=== PATIENT | female | born 1975 | race Caucasian/White ===

== ENCOUNTER 2021-01-21 03:19 | Emergency (ER) | payer MEDICAID ==
[2021-01-21 03:34] VITALS: BP 158/97; PULSE 101
[2021-01-21] MEDS ORDERED: LORazepam 0.5 MG Tab PO ONE (03:40)
--- NOTE | 2021-01-21 03:51 | EDM.PDOC ---
ED HPI GENERAL MEDICAL PROBLEM - General Chief Complaint: General Stated Complaint: anxiety Time Seen by Provider: 01/21/21 03:30 Source of Information: Reports: Patient History Limitations: Reports: No Limitations - History of Present Illness INITIAL COMMENTS - FREE TEXT/NARRATIVE: Naomi is a 45 year old female who presents to ER with increased anxiety. Was pulled over by the police department around [address] home from the bull riding event in [place]. States breathalyzer was done and she failed. has his own and was half of what the sonoscope operator recorded so wanting an alcohol blood test. Started having increased anxiety when the sonoscope operator put the handcuffs on her. Relates has anxiety attacks at times but is normally able to talk herself through them. Has not had a full blown one like this for 16 years. Feels pressure in her chest as a result. Onset: Today, Gradual Duration: Hour(s): Location: Reports: Generalized Quality: Reports: Ache Associated Symptoms: Reports: Chest Pain. Denies: Confusion, Cough, Nausea/Vomiting, Shortness of Breath - Related Data Allergies Allergy/AdvReac Type Severity Reaction Status Date / Time sulfamethoxazole Allergy Hives Verified 01/22/14 13:44 [From Bactrim] Home Meds: Home Meds . [No Known Home Meds] 01/08/15 [History] Past Medical History - Past Health History Medical/Surgical History: Denies Medical/Surgical History - Infectious Disease History Infectious Disease History: Reports: None Social & Family History - Family History Family Medical History: No Pertinent Family History Cardiac: Reports: None - Tobacco Use Tobacco Use Status *Q: Unknown Ever Used Tobacco ED ROS GENERAL - Review of Systems Review Of Systems: See Below Constitutional: Denies: Fever, Chills, Malaise, Weakness, Fatigue, Decreased Appetite HEENT: Reports: Rhinitis. Denies: Ear Pain, Sinus Problem, Throat Pain Respiratory: Denies: Shortness of Breath, Pleuritic Chest Pain Cardiovascular: Reports: Chest Pain. Denies: Edema, Lightheadedness Endocrine: Denies: Fatigue GI/Abdominal: Denies: Abdominal Pain, Nausea, Vomiting : Reports: No Symptoms Musculoskeletal: Reports: No Symptoms Skin: Reports: No Symptoms Neurological: Reports: No Symptoms Psychiatric: Reports: No Symptoms ED EXAM, GENERAL - Physical Exam Exam: See Below Exam Limited By: No Limitations General Appearance: Alert, WD/WN, Anxious Head: Normocephalic Neck: Normal Inspection, Supple, Non-Tender Respiratory/Chest: Lungs Clear, Normal Breath Sounds, Other (patient hyperventilating, given brown paper bag to breathe) Cardiovascular: Regular Rate, Rhythm Extremities: Normal Inspection, No Pedal Edema Neurological: Alert, Oriented Psychiatric: Anxious Course - Vital Signs Last Recorded V/S: Last Vital Signs Temp 98 F 01/21/21 03:28 Pulse 101 H 01/21/21 03:28 Resp 22 H 01/21/21 03:28 BP 158/97 H 01/21/21 03:28 Pulse Ox 98 01/21/21 03:28 - Orders/Labs/Meds Labs: Laboratory Tests 01/21/21 Range/Units 03:32 Ethyl Alcohol 187 H (0-3) mg/dL Meds: Medications Discontinued Medications Generic Name Dose Route Start Last Admin Trade Name Abdoulq PRN Reason Stop Dose Admin Lorazepam 0.5 mg 01/21/21 03:40 Lorazepam 0.5 Mg Tab PO 01/21/21 03:41 ONETIME ONE - Re-Assessments/Exams Free Text/Narrative Re-Assessment/Exam: 01/21/21 0340 Ativan given after blood test done. Brown paper bag given. Did calm somewhat with conversation. Departure - Departure Time of Disposition: 03:49 Disposition: Home, Self-Care 01 Condition: Good Clinical Impression: Anxiety - Discharge Information *PRESCRIPTION DRUG MONITORING PROGRAM REVIEWED*: No *COPY OF PRESCRIPTION DRUG MONITORING REPORT IN PATIENT OZIEL: No Instructions: Managing Anxiety, Adult Referrals: PCP,None [Primary Care Provider] - Forms: ED Department Discharge Additional Instructions: 1. Rest 2. Push fluids 3. Follow up if any concerns Sepsis Event Note (ED) - Evaluation Sepsis Screening Result: No Definite Risk - Focused Exam Vital Signs: Vital Signs Temp Pulse Resp BP Pulse Ox 01/21/21 03:28 98 F 101 H 22 H 158/97 H 98
== END 2021-01-21 04:01 | disposition home or self-care (01) ==
LOC: CC.ED 03:19
DX: F41.9 Anxiety disorder, unspecified (principal); Z88.2 Allergy status to sulfonamides
CPT/HCPCS: 36415; 80307; 99283; A9270